=== PATIENT | male | born 1945 | race Caucasian/White ===

== ENCOUNTER 2017-10-05 10:05 | Inpatient (IN) | payer MEDICARE ==
[~2017-10-05] VITALS: Ht 172.7 cm; Wt 63.5 kg
--- NOTE | ~2017-10-05 | PR ---
[place], [place] PROGRESS NOTE [id number] #: [id number] ROOM: 309 DOCTOR: NIKITA MCKEON DO BIRTHDATE: [birth year] DOS: 10/11/2017 CHIEF COMPLAINT: "I am tired." SUMMARY OF VISIT: The patient was interviewed in his bed. He states that he is very tired, feels nauseous and would like some joe viktoriya. MENTAL STATUS: He is alert and oriented to person. Mood is flat and blunted. Speech is slow. No symptoms suggestive of hypomania or lynda, paranoia. Short-term memory has some gaps. PLAN: Continue his current medical regimen and we will monitor his behavior at this time. Medical team to monitor wounds. We will continue to engage him in group and individual activities and plan upon discharge to return him to the least restrictive environment when he is psychiatrically stable. NIKITA MCKEON DO CHRISTOPHER COWART MD CM:PNTRANS [id number] NIKITA MCKEON DO 10/17/17 0937 interface
--- NOTE | ~2017-10-05 | EKG ---
[place], [place] ELECTROCARDIOGRAM REPORT NAME: ANDREIA BYRNES UNIT #: [id number] ROOM: 309 DOCTOR: OSCAR BROWER,SANTO BIRTHDATE: [birth year] DOS: 10/05/2017 TIME: 2003 hours IMPRESSION: 1. Normal sinus rhythm. 2. Nonspecific ST-T changes. 3. Borderline prolonged QTC interval. SANTO MOORE MD CM:EKGRPT:ELECTROCARDIOGRAM REPORT [id number] SANTO MOORE MD
--- NOTE | ~2017-10-05 | PR ---
[place], [place] PROGRESS NOTE NAME: ANDREIA BYRNES [facility] [id number] UNIT #: [id number] ROOM: 309 DOCTOR: NIKITA MCKEON DO BIRTHDATE: [birth year] DOS: 10/09/2017 CHIEF COMPLAINT: Sleeping well. SUMMARY OF VISIT: The patient was interviewed in the dining room, stated that he was eating well. He enjoys eating meat, sandwiches. Stated that he talked to his brother yesterday and still complaining that he is not sleeping well. Staff did note that he is sleeping well and slept well last night. Per staff, he is also not going to group, but he did participate today. Speaking thus, he stated that he was a private person before he came in to halfway and with us today and that he does not share much. MENTAL STATUS: He is alert and oriented to person. Mood still appears to be flat and blunted with depression. His speech is slow. There are no symptoms suggestive of hypomania or lynda. No overt auditory or visual hallucinations. No delusions or paranoia. Short-term memory has gaps. PLAN: We will increase his Exelon patch to 13.3 mg daily in order to attempt to maximize potential benefit. Continue his other medications which is currently present and we will monitor his behavior. We will continue to engage him in individual and group therapy and return him to the least restrictive environment, when he is psychiatrically stable. NIKITA MCKEON DO CHRISTOPHER COWART MD CM:PNTRANS [id number] NIKITA MCKEON DO 10/09/172111 interface
--- NOTE | ~2017-10-05 | PR ---
[place], [place] PROGRESS NOTE NAME: ANDREIA BYRNES [facility] #: [id number] UNIT #: [id number] ROOM: 309 DOCTOR: NIKITA MCKEON DO BIRTHDATE: [birth year] DOS: 10/10/2017 CHIEF COMPLAINT: "I'm hungry." SUMMARY OF THE VISIT: The patient was interviewed in the dining room. He stated that he was hungry. Per nursing, he had completed about 75% of his breakfast. He stated that feels a bit better. He still continues to not share and discuss things with the group. MENTAL STATUS: He is alert and oriented to person. Mood is flat and blunted and his speech is slow. There are no symptoms suggestive of hypomania or lynda. No overt auditory or visual hallucinations. Does not have delusions or paranoia. His short term memory does have some gaps. PLAN: Continue his current medication regimen and we will monitor his behaviors and we will continue to engage him in group and individual therapy and plan upon discharge to return him to the least restrictive environment when he is psychiatrically stable. NIKITA MCKEON DO CHRISTOPHER COWART MD CM:PNTRANS [id number] NIKITA MCKEON DO 10/17/17 0934 interface
--- NOTE | ~2017-10-05 | EKG ---
[place], [place] ELECTROCARDIOGRAM REPORT NAME: ANDREIA BYRNES UNIT #: [id number] ROOM: 309 DOCTOR: OSCAR BROWER,SANTO BIRTHDATE: [birth year] DOS: 10/05/2017 TIME: 10:38. IMPRESSION: 1. Sinus rhythm. 2. Supraventricular ectopy. 3. Left axis deviation. 4. Abnormal R-wave progression. 5. Borderline prolonged QTc interval. SANTO MOORE MD CM:EKGRPT:ELECTROCARDIOGRAM REPORT [id number] SANTO MOORE MD
--- NOTE | ~2017-10-05 | PR ---
[place], [place] PROGRESS NOTE [id number] UNIT #: [id number] ROOM: 309 DOCTOR: CHRISTOPHER COWART MD BIRTHDATE: [birth year] DOS: 10/12/2017 CHIEF COMPLAINT: "I didn't sleep, I never sleep." SUMMARY OF THE VISIT: The patient was interviewed as he was sitting in a Erin chair watching television. He engaged readily in conversation. He once again reported to me that he did not sleep. This was confirmed by nurses. He continues to have a very restless sleep and he tends to toss and turn and wake up frequently. He though continues to deny pain or discomfort and reports that he has been eating pretty well. He still does appear depressed and is rather flat and blunted. MENTAL STATUS: He is alert and oriented with time gaps. Mood does seem to be very down and depressed. He endorses multiple neurovegetative symptoms still. He does report tolerating the current medication regimen and denies any side effects. PLAN: At this point is to augment with Seroquel 100 mg at bedtime. My hope is that this will augment the effectiveness of the antidepressant while also improving sleep and stabilizing mood. We will engage in individual and barnes milieu activity, returning to the least restrictive environment when psychiatrically stable. CHRISTOPHER COWART MD CM:PNTRANS [id number] CHRISTOPHER COWART MD 10/12/17 1051 interface
--- NOTE | ~2017-10-05 | PR ---
[place], [place] PROGRESS NOTE [id number] #: [id number] ROOM: 309 DOCTOR: CHRISTOPHER COWART MD BIRTHDATE: [birth year] DOS: 10/07/2017 CHIEF COMPLAINT: "Oh, I slept better, thank you." SUMMARY OF THE VISIT: The patient was interviewed as he was sitting, eating his breakfast. He stopped and engaged in conversation. He still seems very flat and blunted. It is almost as if it is chore like for him to engage in conversation. Some of this may be physical in that his red blood cell count and his H and H are dramatically lowered. He, however, does endorse that he is feeling depressed and does admit to having very little desire to do things. MENTAL STATUS: He is alert and oriented to person, possibly place in that he knows he is in the hospital, certainly not oriented to time. Mood does still seem to be very depressed. Affect is flat and blunted with a very constricted range. His speech is slow and halting, very soft spoken. There is no symptom suggestive of hypomania or lynda. There are no overt auditory or visual hallucinations. No delusions, no paranoia. Short term memory has gaps, otherwise he is intact. PLAN: Given the fact that his GFR is low at 18, I will maintain his Namenda to only 10 mg a day. I will continue to push the Exelon patch from 4.6 to 9.5 mg a day, attempting to maximize potential benefit. Screening examination show a B12 level that is low normal at 348. I will go ahead and give him a B12 injection of 1000 mcg IM today to augment him nutritionally. I will increase his Remeron from 15 mg at bedtime to 22.5 mg at bedtime to see if this can maximize benefits. Continue to engage him in individual and barnes milieu activity, returning to the least restrictive environment when psychiatrically stable. CHRISTOPHER COWART MD CM:PNTRANS [id number] CHRISTOPHER COWART MD 10/07/17 1020 interface
--- NOTE | ~2017-10-05 | WRIGHTHP ---
[place], [place] PATIENT HISTORY AND PHYSICAL EXAM NAME: ANDREIA BYRNES UNIT #: [id number] ROOM: 309 DOCTOR: CHRISTOPHER COWART MD BIRTHDATE: [birth year] DOS: 10/06/2017 INITIAL PSYCHIATRIC EVALUATION CHIEF COMPLAINT: "I am here because I fell." HISTORY OF PRESENT ILLNESS: This is a 72-year-old white male who is a resident of [facility] in [place], [place]. The patient recently underwent a penile removal due to a severe infection. Since that time and since returning then to [facility], the patient has been in a very deep depression. He has been isolating himself in his room and has been very withdrawn. He has been resisting care. He has not been eating or drinking consistently well. He has been episodically noncompliant with his medicine. He has been aggressive towards staff when they attempted to intervene. He is admitted now to rule out organic factors, to stabilize on medication, to engage in individual and barnes milieu activity, returning to the least restrictive environment when stable. PAST MEDICAL HISTORY: Remarkable for chronic renal failure, gait disturbance, hypertension, irritable bowel syndrome, diabetes and the surgical removal of his penis due to significant tissue damage and infection. MENTAL STATUS: The patient is alert and oriented with significant time gaps. He could not remember the name of the facility that he was living in, other than it was in [place]. He did not tell me exactly how long he has been here or exactly why. He does appear very depressed and his responses are short and simple. He is rather flat and blunted. There is no lynda or hypomania. There are no overt auditory or visual hallucinations. No delusions, no paranoia. Short term memory has gaps. DIAGNOSES: Major depression, recurrent, severe and dementia, not otherwise specified. PLAN: I have already started him on Remeron 15 mg at bedtime and he is on Namenda as well. I will add Exelon patch 4.6 mg daily to combat any cognitive disturbance. His blood work has multiple abnormalities including a TSH that is elevated at 10.700. I will defer all of this to the hospitalist expertise. [place], [place] PATIENT HISTORY AND PHYSICAL EXAM NAME: ANDREIA BYRNES UNIT #: [id number] ROOM: 309 DOCTOR: CHRISTOPHER COWART MD BIRTHDATE: [birth year] CHRISTOPHER COWART MD CM:HISPHYS:PATIENT HISTORY AND PHYSICAL EXAMINATION 1 1 CHRISTOPHER COWART MD 10/06/17 0952 interface
--- NOTE | ~2017-10-05 | PR ---
[place], [place] PROGRESS NOTE [id number] UN[facility] #: [id number] ROOM: 309 DOCTOR: NIKITA MCKEON DO BIRTHDATE: [birth year] DOS: 10/08/2017 CHIEF COMPLAINT: "I'm not eating well." SUMMARY OF THE VISIT: The patient was interviewed in his bed, lying down, stated he had some breakfast but he is still hungry. Stated that he did not sleep well. When asked if he had trouble staying asleep or falling asleep, he responded with "ask me a normal question and I will answer you." Per nursing, he appeared to be sleeping throughout the night. MENTAL STATUS: He is alert and oriented to person. Mood still appears to be flat, blunted with depression. His speech is slow and blunted, very soft spoken. There are no symptoms suggestive of hypomania or lynda. No overt auditory or visual hallucinations. No delusions, no paranoia. Short-term memory has gaps. Otherwise, he is intact. PLAN: Continue to watch his GFR at 18. We will maintain his Namenda to just at 10 mg a day, Exelon patch at 9.5 mg to attempt to maximize potential benefit. He received a vitamin B12 shot yesterday and we will attempt to increase his nutritional augmentation. Remeron was increased and we will continue that at 22.5 mg at bedtime and then we will start zinc 220 mg every morning. We will continue to engage him in individual and group therapy. Returning to the least restrictive environment when psychiatrically stable. NIKITA MCKEON, DO CHRISTOPHER COWART MD CM:PNTRANS [id number] NIKITA MCKEON DO 10/17/1732 interface
[2017-10-05 10:05] VITALS: BP 173/50
[2017-10-05] MEDS ORDERED: LOMOTIL 2.5-0.1 EACH PO (10:48)
[2017-10-05] MEDS ORDERED: HUMALOG100 UNIT/1 SQ (10:49)
[2017-10-05] MEDS ORDERED: CHLORTHALIDONE25 MG PO (10:50)
[2017-10-05] MEDS ORDERED: DULOXETINE HCL60 MG PO (10:50)
[2017-10-05] MEDS ORDERED: RISPERIDONE0.5 MG PO (10:51)
[2017-10-05] MEDS ORDERED: NAMENDA XR1 EACH PO (10:51)
[2017-10-05] MEDS ORDERED: CALCIUM ACETAT667 M2 PO (10:52)
[2017-10-05] MEDS ORDERED: CALCIUM 500 +1 EAC1 PO (10:53)
[2017-10-05] MEDS ORDERED: ARANESP60 MCG/0.3 IJ (10:53)
[2017-10-05 10:54] LABS: BILIRUBIN NEGATIVE (NEGATIVE); BLOOD 1+ (NEGATIVE); CLARITY CLOUDY (CLEAR); COLOR YELLOW (YELLOW); GLUCOSE NEGATIVE (NEGATIVE); KETONE NEGATIVE (NEGATIVE); LEUKO ESTERASE 1+ (NEGATIVE); NITRITE NEGATIVE (NEGATIVE); UROBILINOGEN 0.2 E.U./dl (0.2-1.0)
[2017-10-05] MEDS ORDERED: LANTUS SOL100 UNIT/1 SQ (10:54)
[2017-10-05] MEDS ORDERED: DOXYCYCLINE100 MG PO (10:54)
[2017-10-05] MEDS ORDERED: LEVOFLOXACIN750 M2 PO (10:55)
[2017-10-05] MEDS ORDERED: TOPROL XL25 MG PO (10:55)
[2017-10-05] MEDS ORDERED: SODIUM BICARBO650 MG PO (10:56)
[2017-10-05] MEDS ORDERED: TAMSULOSIN HCL0.4 MG PO (10:56)
[2017-10-05 11:11] LABS: BASO % 0.2 % (0.0-1.0); EOS # 0.1 10*3/uL (0.0-0.4); EOS % 0.6 % (1.0-4.0); HEMOGLOBIN 7.9 g/dl (14.0-18.0); LYMPH # 0.6 10*3/uL (1.3-4.4); LYMPH % 6.6 % (27.0-41.0); MEAN CELL VOLUME 102.9 fl (80.0-94.0); MEAN CORPUSCULAR HGB 32.5 pg (27.0-31.0); MEAN CORPUSCULAR HGB CONC 31.6 g/dl (33.0-37.0); MEAN PLATELET VOLUME 12.2 fl (9.6-12.3); MONO # 0.4 10*3/uL (0.1-1.0); MONO % 4.7 % (3.0-9.0); NEUT # 8.2 10*3/uL (2.3-7.9); NEUT % 87.4 % (47.0-73.0); PLATELET COUNT AUTOMATED 155 10*3/uL (130-400); RED BLOOD COUNT 2.43 10*6/uL (4.50-5.90); RED CELL DISTRI WIDTH 14.6 % (0-14.5); WHITE BLOOD COUNT 9.4 10*3/uL (4.8-10.8)
[2017-10-05 11:11] LABS: URINE AMPHETAMINES < 1000 (1000ng/ml); URINE BARBITURATES < 200 (200ng/ml); URINE BENZODIAZEPINES < 200 (200ng/ml); URINE CANNABINOIDS (THC) < 50 (50ng/ml); URINE COCAINE < 300 (300ng/ml); URINE METHADONE < 300 (300ng/ml); URINE OPIATES < 300 (300ng/ml)
[2017-10-05 11:16] LABS: WBC 41-50 wbc/hpf (0-5); YEAST 4+
[2017-10-05 11:19] LABS: URINE PHENCYCLIDINE < 25 (25ng/ml)
[2017-10-05 11:21] LABS: ALBUMIN 1.7 gm/dl (3.1-4.5); ALKALINE PHOSPHATASE 231 U/L (45-117); BUN 35 mg/dl (7-24); CHLORIDE 108 mmol/L (98-107); POTASSIUM 3.6 mmol/L (3.5-5.1); SGOT/AST 15 IU/L (3-35); SGPT/ALT 12 U/L (12-78); SODIUM 143 mmol/L (136-145); TOTAL PROTEIN 6.1 gm/dL (6.4-8.2)
[2017-10-05 11:22] LABS: TROPONIN I < 0.015 ng/ml (<0.045)
[2017-10-05 11:23] LABS: ACETAMINOPHEN (TYLENOL) < 2.0 ug/ml (10-30); ETHYL ALCOHOL < 3.0 mg/dl (<3)
[2017-10-05 11:38] VITALS: BP 170/60
[2017-10-05 14:13] VITALS: BP 165/90
[2017-10-05 15:56] VITALS: BP 165/90
[2017-10-05 20:00] VITALS: BP 148/76
[2017-10-05 21:23] LABS: FREE T4 1.24 ng/dl (0.76-1.46)
[2017-10-06 06:33] LABS: BASO % 0.1 % (0.0-1.0); EOS # 0.1 10*3/uL (0.0-0.4); EOS % 0.9 % (1.0-4.0); HEMATOCRIT 28.3 % (42.0-52.0); HEMOGLOBIN 8.7 g/dl (14.0-18.0); LYMPH # 0.5 10*3/uL (1.3-4.4); MEAN CELL VOLUME 102.2 fl (80.0-94.0); MEAN CORPUSCULAR HGB 31.4 pg (27.0-31.0); MEAN CORPUSCULAR HGB CONC 30.7 g/dl (33.0-37.0); MEAN PLATELET VOLUME 11.8 fl (9.6-12.3); MONO # 0.6 10*3/uL (0.1-1.0); MONO % 6.6 % (3.0-9.0); NEUT # 7.6 10*3/uL (2.3-7.9); NEUT % 85.8 % (47.0-73.0); PLATELET COUNT AUTOMATED 122 10*3/uL (130-400); RED BLOOD COUNT 2.77 10*6/uL (4.50-5.90); RED CELL DISTRI WIDTH 14.6 % (0-14.5); WHITE BLOOD COUNT 8.8 10*3/uL (4.8-10.8)
[2017-10-06 06:47] LABS: ALBUMIN 1.7 gm/dl (3.1-4.5); CREATININE 3.25 mg/dL (0.70-1.30); POTASSIUM 3.7 mmol/L (3.5-5.1)
[2017-10-06 06:49] LABS: FREE T4 1.36 ng/dl (0.76-1.46)
[2017-10-06 08:00] VITALS: BP 126/69
[2017-10-06 08:14] VITALS: BP 126/69
[2017-10-06 08:20] LABS: THYROXINE (T4) TOTAL 7.4 ug/dl (4.5-12.1)
[2017-10-06 20:00] VITALS: BP 153/76
[2017-10-07 07:31] VITALS: BP 129/81
[2017-10-07 07:58] LABS: BASO % 0.1 % (0.0-1.0); EOS # 0.1 10*3/uL (0.0-0.4); EOS % 1.1 % (1.0-4.0); HEMATOCRIT 25.5 % (42.0-52.0); HEMOGLOBIN 7.9 g/dl (14.0-18.0); LYMPH # 0.6 10*3/uL (1.3-4.4); LYMPH % 8.3 % (27.0-41.0); MEAN CELL VOLUME 100.8 fl (80.0-94.0); MEAN CORPUSCULAR HGB 31.2 pg (27.0-31.0); MEAN PLATELET VOLUME 12.2 fl (9.6-12.3); MONO # 0.5 10*3/uL (0.1-1.0); MONO % 6.7 % (3.0-9.0); NEUT # 5.9 10*3/uL (2.3-7.9); NEUT % 83.4 % (47.0-73.0); PLATELET COUNT AUTOMATED 123 10*3/uL (130-400); RED BLOOD COUNT 2.53 10*6/uL (4.50-5.90)
[2017-10-07 08:31] LABS: ALBUMIN 1.6 gm/dl (3.1-4.5); CREATININE 3.43 mg/dL (0.70-1.30); PHOSPHOROUS 3.6 mg/dL (2.5-4.9); POTASSIUM 3.7 mmol/L (3.5-5.1); TOTAL PROTEIN 5.6 gm/dL (6.4-8.2)
[2017-10-07 20:00] VITALS: BP 141/84
[2017-10-08 08:16] VITALS: BP 150/74
[2017-10-08 19:54] VITALS: BP 151/83
[2017-10-09 06:51] LABS: BASO % 0.1 % (0.0-1.0); EOS # 0.1 10*3/uL (0.0-0.4); EOS % 0.7 % (1.0-4.0); HEMATOCRIT 25.4 % (42.0-52.0); LYMPH # 0.7 10*3/uL (1.3-4.4); LYMPH % 9.5 % (27.0-41.0); MEAN CELL VOLUME 99.6 fl (80.0-94.0); MEAN CORPUSCULAR HGB 31.4 pg (27.0-31.0); MEAN CORPUSCULAR HGB CONC 31.5 g/dl (33.0-37.0); MEAN PLATELET VOLUME 11.9 fl (9.6-12.3); MONO # 0.7 10*3/uL (0.1-1.0); MONO % 9.5 % (3.0-9.0); NEUT # 5.6 10*3/uL (2.3-7.9); NEUT % 79.8 % (47.0-73.0); PLATELET COUNT AUTOMATED 90 10*3/uL (130-400); RED BLOOD COUNT 2.55 10*6/uL (4.50-5.90); RED CELL DISTRI WIDTH 15.1 % (0-14.5)
[2017-10-09 07:18] LABS: ALBUMIN 1.7 gm/dl (3.1-4.5); CREATININE 3.86 mg/dL (0.70-1.30); POTASSIUM 4.1 mmol/L (3.5-5.1); TOTAL PROTEIN 5.9 gm/dL (6.4-8.2)
[2017-10-09 08:35] VITALS: BP 170/80
[2017-10-09 20:00] VITALS: BP 166/87
[2017-10-10 08:04] LABS: ALBUMIN 1.6 gm/dl (3.1-4.5); CREATININE 3.92 mg/dL (0.70-1.30); POTASSIUM 4.2 mmol/L (3.5-5.1)
[2017-10-10 08:17] LABS: BASO % 0.2 % (0.0-1.0); EOS # 0.1 10*3/uL (0.0-0.4); EOS % 1.9 % (1.0-4.0); HEMATOCRIT 23.9 % (42.0-52.0); HEMOGLOBIN 7.4 g/dl (14.0-18.0); LYMPH # 0.8 10*3/uL (1.3-4.4); LYMPH % 15.7 % (27.0-41.0); MEAN CELL VOLUME 99.6 fl (80.0-94.0); MEAN CORPUSCULAR HGB 30.8 pg (27.0-31.0); MEAN PLATELET VOLUME 12.2 fl (9.6-12.3); MONO # 0.7 10*3/uL (0.1-1.0); MONO % 12.8 % (3.0-9.0); NEUT # 3.6 10*3/uL (2.3-7.9); PLATELET COUNT AUTOMATED 79 10*3/uL (130-400); RED CELL DISTRI WIDTH 14.9 % (0-14.5); WHITE BLOOD COUNT 5.2 10*3/uL (4.8-10.8)
[2017-10-10 08:55] VITALS: BP 137/79
[2017-10-10 09:26] LABS: FERRITIN 346.1 ng/mL (22.0-322.0)
[2017-10-10 17:38] LABS: BILIRUBIN NEGATIVE (NEGATIVE); BLOOD 1+ (NEGATIVE); CLARITY CLEAR (CLEAR); COLOR YELLOW (YELLOW); GLUCOSE TRACE (NEGATIVE); KETONE NEGATIVE (NEGATIVE); LEUKO ESTERASE NEGATIVE (NEGATIVE); NITRITE NEGATIVE (NEGATIVE); SPECIFIC GRAVITY 1.015 (1.005-1.030); UROBILINOGEN 0.2 E.U./dl (0.2-1.0)
[2017-10-10 17:58] LABS: BACTERIA TRACE; WBC 16-20 wbc/hpf (0-5); YEAST 1+
[2017-10-10 20:58] VITALS: BP 152/76
[2017-10-11 06:07] LABS: ALBUMIN 1.6 gm/dl (3.1-4.5); CREATININE 3.87 mg/dL (0.70-1.30); PHOSPHOROUS 4.3 mg/dL (2.5-4.9); POTASSIUM 3.8 mmol/L (3.5-5.1)
[2017-10-11 07:25] VITALS: BP 136/82
[2017-10-11 20:17] VITALS: BP 140/75; BP 170/71
[2017-10-12 07:17] VITALS: BP 152/78
[2017-10-12 08:06] LABS: ALBUMIN 1.5 gm/dl (3.1-4.5); CREATININE 4.12 mg/dL (0.70-1.30); PHOSPHOROUS 4.5 mg/dL (2.5-4.9); POTASSIUM 3.7 mmol/L (3.5-5.1)
[2017-10-12] MEDS ORDERED: FLUCONAZOLE100 MG PO (18:23)
[2017-10-12] MEDS ORDERED: Synthroid,Levo25 MCG PO (18:23)
[2017-10-12] MEDS ORDERED: EXEL13.31 T (18:38)
[2017-10-12] MEDS ORDERED: SEROQUEL100 MG PO (18:38)
[2017-10-12] MEDS ORDERED: REMERON45 M1 PO (18:38)
[2017-10-12] MEDS ORDERED: NAMENDA10 MG PO (18:39)
[2017-10-12 19:28] VITALS: BP 164/80
[2017-10-13] MEDS ORDERED: ZINC SULFATE220 MG PO (12:52)
[2017-10-13] MEDS ORDERED: Rocaltrol0.25 MCG PO (12:52)
[2017-10-13] MEDS ORDERED: RIVASTIGMINE1 EAC1 T (12:52)
[2017-10-13] MEDS ORDERED: MIRTAZAPINE15 M2 PO (12:52)
[2017-10-13] MEDS ORDERED: ZOSYN 2/0.252.25 GM IV (12:54)
[2017-10-13] MEDS ORDERED: VANCOCIN1000 MG/25 IV (12:54)
== END 2017-10-12 20:15 | disposition short-term general hospital (02) | DRG 884 ==
LOC: ED 10:05 → 3N 12:46
PROVIDERS: Emergency Medicine; Family Medicine; Internal Medicine; Nurse Practitioner Family; Registered Nurse; Student in an Organized Health Care Education/Training Program
DX: F03.91 Unspecified dementia, unspecified severity, with behavioral disturbance (principal); E43 Unspecified severe protein-calorie malnutrition; N17.9 Acute kidney failure, unspecified; F33.2 Major depressive disorder, recurrent severe without psychotic features; N18.4 Chronic kidney disease, stage 4 (severe); E11.22 Type 2 diabetes mellitus with diabetic chronic kidney disease; E87.8 Other disorders of electrolyte and fluid balance, not elsewhere classified; S31.20XA Unspecified open wound of penis, initial encounter; D63.8 Anemia in other chronic diseases classified elsewhere; R15.9 Full incontinence of feces; K58.0 Irritable bowel syndrome with diarrhea; F17.290 Nicotine dependence, other tobacco product, uncomplicated; S30.813A Abrasion of scrotum and testes, initial encounter; E61.1 Iron deficiency; E21.3 Hyperparathyroidism, unspecified; I12.9 Hypertensive chronic kidney disease with stage 1 through stage 4 chronic kidney disease, or unspecified chronic kidney disease; N40.0 Benign prostatic hyperplasia without lower urinary tract symptoms; X58.XXXA Exposure to other specified factors, initial encounter; Y93.89 Activity, other specified; Y92.89 Other specified places as the place of occurrence of the external cause; Y99.8 Other external cause status; Z91.09 Other allergy status, other than to drugs and biological substances; Z79.2 Long term (current) use of antibiotics; Z79.4 Long term (current) use of insulin; Z79.899 Other long term (current) drug therapy; Z72.89 Other problems related to lifestyle; Z90.79 Acquired absence of other genital organ(s)

== ENCOUNTER 2017-10-12 18:54 | Inpatient (IN) | payer MEDICARE ==
[~2017-10-12] VITALS: Ht 172.7 cm; Wt 65.8 kg
--- NOTE | ~2017-10-12 | CON ---
[place], [place] REPORT OF CONSULTATION NAME: ANDREIA BYRNES UNIT #: [id number] ROOM: 407 DOCTOR: CHRISTOPHER COWART MD BIRTHDATE: [birth year] DOS: 10/13/2017 CHIEF COMPLAINT: "I am okay." SUMMARY OF THE VISIT: The patient was interviewed in his room as he was resting quietly in bed. He looks rather fatigued and worn but he continues to minimize. He did so during his entire stay on [facility] stating that his only issue was chronic insomnia, but that was occurring even before he became so medically compromised. He reports he is eating well and denies any pain or discomfort. MENTAL STATUS: He is alert and oriented with time gaps. Mood does seem to be depressed and despondent, however. He speaks in very soft short sentences, at times not elaborating very much. There was no agitation or aggression. There was no hypomania or lynda. There were no auditory or visual hallucinations, delusions or paranoia. DIAGNOSIS: Major depression, recurrent. PLAN: I am going to go ahead and resume his Remeron 15 mg at bedtime. Given the fact that chronic insomnia is an issue, this should aid sleep and also improve appetite so his nutritional status post stays well. I will restart zinc 220 mg, not only for wound healing but also to improve his sense of taste and start him on a lower dose of Exelon patch 9.5 mg a day to improve his ADL maintenance, behavior and cognition. Beyond that, I do not see much more interventions psychiatrically that can be done. At this point, his medical issues clearly outweigh his psychiatric. Once he is medically stable, I would reconsider a stint on the [facility], although honestly, I do think he could return safely to [facility] once medically stable. CHRISTOPHER COWART MD CM:CONSTR:REPORT OF CONSULTATION 10/13/17 0945 interface
[~2017-10-12 18:54] MED LIST: ARANESP60 MCG/0.3 IJ; CALCIUM 500 +1 EAC1 PO; CALCIUM ACETAT667 M2 PO; CHLORTHALIDONE25 MG PO; DOXYCYCLINE100 MG PO; DULOXETINE HCL60 MG PO; EXEL13.31 T; FLUCONAZOLE100 MG PO; HUMALOG100 UNIT/1 SQ; LANTUS SOL100 UNIT/1 SQ; LEVOFLOXACIN750 M2 PO; LOMOTIL 2.5-0.1 EACH PO; NAMENDA XR1 EACH PO; NAMENDA10 MG PO; REMERON45 M1 PO; RISPERIDONE0.5 MG PO; SEROQUEL100 MG PO; SODIUM BICARBO650 MG PO; Synthroid,Levo25 MCG PO; TAMSULOSIN HCL0.4 MG PO; TOPROL XL25 MG PO
[2017-10-12 20:10] VITALS: BP 161/61
[2017-10-13] VITALS: BP 116/50
[2017-10-13 06:00] LABS: BASO % 0.4 % (0.0-1.0); EOS # 0.1 10*3/uL (0.0-0.4); HEMATOCRIT 24.5 % (42.0-52.0); HEMOGLOBIN 7.5 g/dl (14.0-18.0); LYMPH % 21.5 % (27.0-41.0); MEAN CELL VOLUME 99.6 fl (80.0-94.0); MEAN CORPUSCULAR HGB 30.5 pg (27.0-31.0); MEAN CORPUSCULAR HGB CONC 30.6 g/dl (33.0-37.0); MEAN PLATELET VOLUME 11.4 fl (9.6-12.3); MONO # 0.5 10*3/uL (0.1-1.0); MONO % 12.1 % (3.0-9.0); NEUT # 2.8 10*3/uL (2.3-7.9); NEUT % 63.6 % (47.0-73.0); NUCLEATED RED BLOOD CELL 0.4 % (0.0-0.0); PLATELET COUNT AUTOMATED 127 10*3/uL (130-400); RED BLOOD COUNT 2.46 10*6/uL (4.50-5.90); RED CELL DISTRI WIDTH 14.7 % (0-14.5); WHITE BLOOD COUNT 4.5 10*3/uL (4.8-10.8)
[2017-10-13 06:14] LABS: ALBUMIN 1.5 gm/dl (3.1-4.5); CREATININE 3.93 mg/dL (0.70-1.30); PHOSPHOROUS 4.5 mg/dL (2.5-4.9); POTASSIUM 3.8 mmol/L (3.5-5.1); TOTAL PROTEIN 5.6 gm/dL (6.4-8.2)
[2017-10-13 06:20] LABS: FREE T4 1.32 ng/dl (0.76-1.46)
[2017-10-13 06:24] LABS: THYROID STIM HORMONE (HS) 5.81 uIU/ml (0.358-4.75)
[2017-10-13 06:25] LABS: ACT PARTIAL THROMBO TIME 26.1 SECONDS (20.8-31.5); INTERNATIONAL NORM RATIO 1.2 (2.0-3.5)
[2017-10-13 07:22] LABS: VITAMIN D, 25-HYDROXY 32.1 ng/mL (30-100)
[2017-10-13 08:00] VITALS: BP 144/52
[2017-10-13] MEDS ORDERED: Rocaltrol0.25 MCG PO (12:52)
[2017-10-13] MEDS ORDERED: MIRTAZAPINE15 M2 PO (12:52)
[2017-10-13] MEDS ORDERED: RIVASTIGMINE1 EAC1 T (12:52)
[2017-10-13] MEDS ORDERED: ZINC SULFATE220 MG PO (12:52)
[2017-10-13] MEDS ORDERED: ZOSYN 2/0.252.25 GM IV (12:54)
[2017-10-13] MEDS ORDERED: VANCOCIN1000 MG/25 IV (12:54)
[2017-10-13 16:00] VITALS: BP 155/58
== END 2017-10-13 18:48 | disposition short-term general hospital (02) | DRG 604 ==
LOC: 4E 18:54
PROVIDERS: Internal Medicine
DX: S31.2 Open wound of penis (principal); E43 Unspecified severe protein-calorie malnutrition; N18.5 Chronic kidney disease, stage 5; E11.22 Type 2 diabetes mellitus with diabetic chronic kidney disease; F33.9 Major depressive disorder, recurrent, unspecified; N25.81 Secondary hyperparathyroidism of renal origin; M62.81 Muscle weakness (generalized); I12.9 Hypertensive chronic kidney disease with stage 1 through stage 4 chronic kidney disease, or unspecified chronic kidney disease; K58.9 Irritable bowel syndrome, unspecified; N40.0 Benign prostatic hyperplasia without lower urinary tract symptoms; R15.9 Full incontinence of feces; R26.2 Difficulty in walking, not elsewhere classified; F17.290 Nicotine dependence, other tobacco product, uncomplicated; R68.89 Other general symptoms and signs; N49.3 Fournier gangrene; E83.51 Hypocalcemia; Z79.4 Long term (current) use of insulin; Z90.79 Acquired absence of other genital organ(s); Z79.899 Other long term (current) drug therapy; X58.XXXS Exposure to other specified factors, sequela; Z68.22 Body mass index [BMI] 22.0-22.9, adult